=== PATIENT | female | born 1950 | race American Indian/Alaskan Native ===

== ENCOUNTER 2018-06-24 09:55 | Inpatient (IN) | payer MEDICARE ==
[2018-06-24] MEDS ORDERED: ANCEF/STERILE WATER 2 GM/20 ML 2 GM/20 ML SYRINGE IV NR (11:00)
[2018-06-24 11:17] LABS: Basophils # (Auto) 0.1 K/mm3 (0.0-0.1); Eosinophils # (Auto) 0.1 K/mm3 (0.0-0.4); Eosinophils % (Auto) 1.1 % (0.0-4.3); Hematocrit 31.5 % (30.3-42.9); Hemoglobin 10.4 gm/dl (10.1-14.3); Lymphocytes # (Auto) 1.7 K/mm3 (1.2-5.4); Lymphocytes % (Auto) 19.2 % (13.4-35.0); Mean Corpuscular HGB Conc 33 % (30-34); Mean Corpuscular Volume 94 fl (79-97); Monocytes # (Auto) 0.8 K/mm3 (0.0-0.8); Monocytes % (Auto) 8.7 % (0.0-7.3); Platelet Count 176 K/mm3 (140-440); Red Blood Count 3.34 M/mm3 (3.65-5.03); Red Cell Distribution Width 15.9 % (13.2-15.2)
[2018-06-24 11:23] LABS: INR 1.05 (0.87-1.13)
[2018-06-24 11:27] LABS: Calcium 8.2 mg/dL (8.4-10.2)
[2018-06-24] MEDS ORDERED: PERCOCET 5/325 PO PRN (12:35)
[2018-06-24] MEDS ORDERED: SODIUM CHLORIDE FLUSH SYRINGE 10 ML IV PRN (12:35)
[2018-06-24] MEDS ORDERED: ZOFRAN IV PRN (12:35)
[2018-06-24] MEDS ORDERED: TYLENOL PO PRN (12:35)
--- NOTE | 2018-06-24 12:41 | History and Physical Report ---
History of Present Illness Chief complaint: Needing dialysis History of present illness: 68 YO Female with ESRD on HD, DM, HTN, CVA presents to outpatient surgery for permacath placement. Pt found to have hyperkalemia and clotted AV fistula. 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 Pt denies fever chills, CP, Palpi tations, NVD, Trauma, syncope, falls, productive cough, or recent ill contacts. Pt admitted to medical floor. Nephrology consulted for dialysis. Vascular surgery consulted for clotted AV fistula repair. No reported nursing events Past History Past Medical History: diabetes, ESRD, hypertension, stroke Past Surgical History: Other (AV Fistula) Social history: . denies: smoking, alcohol abuse, prescription drug abuse Family history: hypertension Medications and Allergies Allergies Allergy/AdvReac Type Severity Reaction Status Date / Time strawberry Allergy Hives Unverified 06/24/18 09:56 Home Medications Medication Instructions Recorded Confirmed Last Taken Type Aspirin [Aspirin BABY CHEW TAB] 81 mg PO DAILY 10/27/13 06/24/18 06/23/18 History 81mg Gabapentin [Neurontin] 100 mg PO DAILY 10/27/13 06/24/18 06/23/18 History 100mg Calcium Acetate 667 mg PO TID 05/24/14 06/24/18 06/23/18 History 667mg Vit B Comp No.3/Folic/C/Biotin 1 each PO DAILY 05/24/14 06/24/18 06/23/18 History [Lucero-Omid Rx Tablet] Midodrine HCl 2.5 mg PO BID 06/24/18 06/24/18 06/23/18 History 2.5mg Active Meds: Active Medications Acetaminophen (Tylenol) 650 mg PO Q4H PRN PRN Reason: Pain MILD(1-3)/Fever >100.5/VILLATORO Aspirin (Baby Aspirin) 81 mg PO DAILY TJ Calcium Acetate (Phoslo) 667 mg PO TID TJ Gabapentin (Neurontin) 100 mg PO DAILY TJ Cefazolin Sodium (Ancef/Sterile Water 2 Gm/20 Ml) 2 gm in 20 mls @ 80 mls/hr IV PREOP NR; Protocol Stop: 06/24/18 23:59 Midodrine (Proamatine) 2.5 mg PO BID [facility] Miscellaneous Medication (Vit B Comp No.3/Folic/C/Biotin [Lucero-Omid Rx Tablet]) 1 each PO DAILY [facility] Ondansetron HCl (Zofran) 4 mg IV Q8H PRN PRN Reason: Nausea And Vomiting Oxycodone/Acetaminophen (Percocet 5/325) 1 tab PO Q6H PRN PRN Reason: Pain, Moderate (4-6) Sodium Chloride (Sodium Chloride Flush Syringe 10 Ml) 10 ml IV BID [facility] Sodium Chloride (Sodium Chloride Flush Syringe 10 Ml) 10 ml IV PRN PRN PRN Reason: LINE FLUSH Review of Systems Constitutional: no weight loss, no weight gain, no fever, no chills Ears, nose, mouth and throat: no ear pain, no ear discharge, no tinnitis Breasts: no change in shape, no swelling, no mass Cardiovascular: no chest pain, no orthopnea, no palpitations, no rapid/irregular heart beat, no edema, no syncope Respiratory: no cough, no cough with sputum, no excessive sputum, no hemoptysis, no shortness of breath Gastrointestinal: no nausea, no vomiting, no diarrhea, no constipation Genitourinary Female: no pelvic pain, no flank pain, no menorrhagia, no dysuria, no urinary frequency Rectal: no pain, no incontinence, no bleeding Musculoskeletal: no neck stiffness, no neck pain, no shooting arm pain, no arm numbness/tingling, no low back pain, no shooting leg pain Integumentary: no rash, no pruritis, no redness, no sores, no wounds, no jaundice Neurological: no head injury, no transient paralysis, no paralysis, no numbness, no tingling Psychiatric: no anxiety, no memory loss, no change in sleep habits, no insomnia, no hypersomnia, no change in appetite, no suicidal ideation Endocrine: no cold intolerance, no heat intolerance, no polyphagia, no excessive thirst, no polydipsia Hematologic/Lymphatic: no easy bruising, no easy bleeding, no lymphedema Allergic/Immunologic: no urticaria, no allergic rhinitis, no wheezing, no persistent infections, no anaphylaxis Exam - Constitutional Vitals: Temp Pulse Resp BP Pulse Ox 99.3 F 63 16 136/66 99 06/24/18 11:28 06/24/18 11:28 06/24/18 11:28 06/24/18 11:28 06/24/18 11:28 General appearance: Present: mild distress - EENT Eyes: Present: PERRL ENT: hearing intact, clear oral mucosa - Neck Neck: Present: supple, normal ROM - Respiratory Respiratory effort: normal Respiratory: bilateral: CTA - Cardiovascular Heart Sounds: Present: S1 & S2. Absent: rub, click - Extremities Extremities: pulses symmetrical, No edema Peripheral Pulses: within normal limits - Abdominal General gastrointestinal: Present: soft, non-tender, non-distended, normal bowel sounds Female genitourinary: Present: normal - Integumentary Integumentary: Present: clear, warm, dry - Musculoskeletal Musculoskeletal: gait normal, strength equal bilaterally - Psychiatric Psychiatric: appropriate mood/affect, intact judgment & insight - Neurologic Neurologic: CNII-XII intact, moves all extremities Results - Labs CBC & Chem 7: 06/24/18 19:47 06/24/18 19:47 Labs: Abnormal lab results 06/24/18 06/24/18 Range/Units 11:00 11:00 RBC 3.34 L (3.65-5.03) M/mm3 RDW 15.9 H (13.2-15.2) % [place] % (Auto) 8.7 H (0.0-7.3) % Potassium 6.1 H* (3.6-5.0) mmol/L Chloride 96.5 L (98-107) mmol/L Carbon Dioxide 21 L (22-30) mmol/L BUN 77 H (7-17) mg/dL Creatinine 13.1 H (0.7-1.2) mg/dL Calcium 8.2 L (8.4-10.2) mg/dL Assessment and Plan - Patient Problems (1) End-stage renal disease (ESRD) Status: Acute Plan to address problem: Nephrology consulted for urgent dialysis, monitor uop q shift, (2) Hyperkalemia Status: Acute Plan to address problem: Urgent dialysis, bmp, ekg. No EKG changes. (3) Acidosis Status: Acute Plan to address problem: Urgent dialysis, gentle IVF resuscitation therapy (4) AV fistula occlusion Status: Acute Qualifiers: Encounter type: initial encounter Qualified Code(s): T82.898A - Other specified complication of vascular prosthetic devices, implants and grafts, initial encounter Plan to address problem: Vascular surgery consulted, S/P Permacath placement. (5) DVT prophylaxis Status: Acute Plan to address problem: SCD to ble while in bed
[2018-06-24] MEDS ORDERED: HEPARIN/NS 5000 UNIT/500ML(CATH LAB) 1,000 ML IR ONE (12:42)
[2018-06-24] MEDS ORDERED: HEPARIN 10,000 UNITS/10 ML ONE (12:42)
[2018-06-24] MEDS ORDERED: XYLOCAINE 2% INFILTRATI ONE (12:42)
[2018-06-24] MEDS ORDERED: VERSED ONE (12:43)
[2018-06-24] MEDS ORDERED: SUBLIMAZE ONE (12:43)
[2018-06-24] MEDS ORDERED: NACL 0.9% 500 ML 500 ML ONE (12:53)
[2018-06-24] MEDS ORDERED: CALCIUM GLUCONATE 2,000 MG in NACL 0.9% 100 ML IV ONE (12:59)
[2018-06-24] MEDS ORDERED: KIONEX PO ONE (12:59)
[2018-06-24] MEDS ORDERED: ANCEF/STERILE WATER 2 GM/20 ML 2 GM/20 ML SYRINGE IV ONE (13:03)
--- NOTE | 2018-06-24 13:40 | Operative Report ---
Operative Report Operative Report: Operative note: Date: 06/22/2018 Preoperative diagnosis:. Left arm AV graft malfunction Postoperative diagnosis: Same. Operation: Fistulogram with balloon angioplasty of axillary vein Surgeon: Elisha Rhodes. Asst.: None Anesthesia: Local with sedation EBL: Minimal Findings: Severe stenosis of axillary vein Indications: 68-year-old female with prolonged bleeding and poor clearance during dialysis was discussed need for fistulogram. She was explained risks, benefits and alternatives of procedure and chose to proceed and signed informed consent. Operative details: Patient was brought to the [facility] and placed in supine position. Her left arm was prepped and draped in sterile fashion. Timeout was performed. AV graft was accessed in a retrograde fashion using standard micropuncture technique. Fistula was performed and showed tight stenosis at the axillary vein. It was upsized to 6 [place] sheath over a Suh wire. Using a vertebral catheter and wire was maneuvered through this much. Patient was given 2000 heparin. It balloon angioplasty using 8 x 40 [place] balloon was performed. There was significant improvement of the stenotic area. Graft started having palpable thrill. Exercise was closed using 4-0 Vicryl. Patient tolerated procedure well and was transferred to PACU in stable condition. Since her potassium was high she was admitted and scheduled to go for dialysis.
[2018-06-24] MEDS ORDERED: PHOSLO PO SCH (14:00)
[2018-06-24] MEDS ORDERED: NACL 0.9% 100 ML IV PRN ×4 (14:09→18:47)
[2018-06-24] MEDS ORDERED: HEPARIN IV ONE (14:19)
[2018-06-24 16:33] LABS: Albumin 3.7 g/dL (3.9-5); Calcium 7.9 mg/dL (8.4-10.2)
[2018-06-24 16:40] LABS: Hepatitis B Surface Antigen Non-Reactive (Negative); Hepatitis C Virus Antibody Non-Reactive (NonReactive)
--- NOTE | 2018-06-24 17:53 | Consultation ---
History of Present Illness - Reason for Consult Consult date: 06/24/18 end stage renal disease, hyperkalemia - History of Present Illness Patient is a 68yo with ESRD on HD MWF who presented to [facility] for outpatient management of malfunctioning AVG. Pre procedure labs obtained by vascular surgery notable for K 6.1. She has been admitted post procedure for management of hyperkalemia. Patient is seen s/p fistulogram w/ declot. Nephrology consultation requested for management of hyperkalemia in ESRD patient. Patient is seen in dialysis unit. She has no complaints today. Past History Past Medical History: ESRD, other (anemia secondary to ESRD, secondary hyperparathyroidism) Past Surgical History: Other (hx of partial colectomy with subsequent reanastamosis ) Social history: no significant social history, lives with family Family history: no significant family history Medications and Allergies Allergies Allergy/AdvReac Type Severity Reaction Status Date / Time strawberry Allergy Hives Unverified 06/24/18 09:56 Home Medications Medication Instructions Recorded Confirmed Last Taken Type Aspirin [Aspirin BABY CHEW TAB] 81 mg PO DAILY 10/27/13 06/24/18 06/23/18 History 81mg Gabapentin [Neurontin] 100 mg PO DAILY 10/27/13 06/24/18 06/23/18 History 100mg Calcium Acetate 667 mg PO TID 05/24/14 06/24/18 06/23/18 History 667mg Vit B Comp No.3/Folic/C/Biotin 1 each PO DAILY 05/24/14 06/24/18 06/23/18 History [Lucero-Omid Rx Tablet] Midodrine HCl 2.5 mg PO BID 06/24/18 06/24/18 06/23/18 History 2.5mg Active Meds: Active Medications Acetaminophen (Tylenol) 650 mg PO Q4H PRN PRN Reason: Pain MILD(1-3)/Fever >100.5/VILLATORO Aspirin (Baby Aspirin) 81 mg PO DAILY TJ Calcium Acetate (Phoslo) 667 mg PO TID TJ Gabapentin (Neurontin) 100 mg PO DAILY TJ Cefazolin Sodium (Ancef/Sterile Water 2 Gm/20 Ml) 2 gm in 20 mls @ 80 mls/hr IV PREOP NR; Protocol Stop: 06/24/18 23:59 Sodium Chloride (Nacl 0.9%) 100 mls @ 999 mls/hr IV NEDA PRN PRN Reason: Hypotension Midodrine (Proamatine) 2.5 mg PO BID TJ Multivit/Ca Carb/B Cmplx/FA/Prenat (Renal Caps) 1 cap PO QDAY TJ Ondansetron HCl (Zofran) 4 mg IV Q8H PRN PRN Reason: Nausea And Vomiting Oxycodone/Acetaminophen (Percocet 5/325) 1 tab PO Q6H PRN PRN Reason: Pain, Moderate (4-6) Sodium Chloride (Sodium Chloride Flush Syringe 10 Ml) 10 ml IV BID TJ Sodium Chloride (Sodium Chloride Flush Syringe 10 Ml) 10 ml IV PRN PRN PRN Reason: LINE FLUSH Review of Systems All systems: negative Exam - Vital Signs Vital signs: Vital Signs Temp Pulse Resp BP Pulse Ox 99.3 F 63 16 136/66 99 06/24/18 11:28 06/24/18 11:28 06/24/18 11:28 06/24/18 11:28 06/24/18 11:28 - General Appearance General appearance: well-developed, well-nourished EENT: ATNC Respiratory: Clear to Ascultation Heart: regular, S1S2 Gastrointestinal: Present: normal. Absent: tenderness, distended Integumentary: no rash, warm and dry Neurologic: no focal deficit, alert and oriented x3 Musculoskeletal: Present: other (no edema) Psychiatric: mood/affect appropriate, cooperative Results - Lab Results 06/24/18 11:00 06/24/18 15:20 Most recent lab results Calcium 7.9 mg/dL (8.4-10.2) L 06/24/18 15:20 Assessment and Plan Impression: * End stage renal disease * Hyperkalemia * Malfunctioning AVG s/p fistulogram w/ declot * Anemia secondary to ESRD * Secondary hyperparathyroidism Plan: * Hemodialysis today - of note, during treatment needle became dislodged but no significant blood loss * UF as tolerated * Repeat K following HD * Resume home medications * Renal diet * Binders with meals * Stable for d/c from a renal standpoint
[2018-06-24] MEDS ORDERED: HEPARIN 10,000 UNITS/10 ML IV PRN (18:42)
[2018-06-24] MEDS ORDERED: NACL 0.9 (PRIMING MACHINE ONLY DIALYSIS) MC ONE (19:18)
[2018-06-24 19:39] VITALS: BP 157/62
[2018-06-24 20:02] LABS: Basophils # (Auto) 0.1 K/mm3 (0.0-0.1); Basophils % (Auto) 1.2 % (0.0-1.8); Eosinophils # (Auto) 0.1 K/mm3 (0.0-0.4); Eosinophils % (Auto) 1.4 % (0.0-4.3); Hematocrit 34.8 % (30.3-42.9); Hemoglobin 11.5 gm/dl (10.1-14.3); Lymphocytes # (Auto) 2.7 K/mm3 (1.2-5.4); Lymphocytes % (Auto) 31.7 % (13.4-35.0); Mean Corpuscular HGB Conc 33 % (30-34); Mean Corpuscular Volume 95 fl (79-97); Monocytes # (Auto) 0.7 K/mm3 (0.0-0.8); Monocytes % (Auto) 7.9 % (0.0-7.3); Platelet Count 191 K/mm3 (140-440); Red Blood Count 3.67 M/mm3 (3.65-5.03)
[2018-06-24] MEDS ORDERED: PROAMATINE PO SCH (22:00)
[2018-06-24] MEDS ORDERED: SODIUM CHLORIDE FLUSH SYRINGE 10 ML IV SCH (22:00)
[2018-06-25] MEDS ORDERED: Renal Caps PO SCH (10:00)
[2018-06-25] MEDS ORDERED: BABY ASPIRIN PO SCH (10:00)
[2018-06-25] MEDS ORDERED: NEURONTIN PO SCH (10:00)
== END 2018-06-24 21:25 | disposition left against medical advice (07) | DRG 252 ==
LOC: CATHLABREC 09:55 → 2B-ACE 12:35
PROVIDERS: ADMIT Internal Medicine; ATTEND Internal Medicine
PROC: 05783ZZ Dilation of Left Axillary Vein, Percutaneous Approach (ICD-10-PCS; principal; 2018-06-24)
PROC: B51W1ZZ Fluoroscopy of Dialysis Shunt/Fistula using Low Osmolar Contrast (ICD-10-PCS; 2018-06-24)
PROC: 3E033GC Introduction of Other Therapeutic Substance into Peripheral Vein, Percutaneous Approach (ICD-10-PCS; 2018-06-24)
PROC: 5A1D70Z Performance of Urinary Filtration, Intermittent, Less than 6 Hours Per Day (ICD-10-PCS; 2018-06-24)
DX: T82.858A Stenosis of other vascular prosthetic devices, implants and grafts, initial encounter (principal); N18.6 End stage renal disease; E87.2 Acidosis; I12.0 Hypertensive chronic kidney disease with stage 5 chronic kidney disease or end stage renal disease; N25.81 Secondary hyperparathyroidism of renal origin; Y83.2 Surgical operation with anastomosis, bypass or graft as the cause of abnormal reaction of the patient, or of later complication, without mention of misadventure at the time of the procedure; D63.1 Anemia in chronic kidney disease; E11.22 Type 2 diabetes mellitus with diabetic chronic kidney disease; E87.5 Hyperkalemia; Y92.89 Other specified places as the place of occurrence of the external cause; Z86.73 Personal history of transient ischemic attack (TIA), and cerebral infarction without residual deficits; Z82.49 Family history of ischemic heart disease and other diseases of the circulatory system; Z79.82 Long term (current) use of aspirin; Z79.899 Other long term (current) drug therapy; Z90.49 Acquired absence of other specified parts of digestive tract
CPT/HCPCS: 36415; 36902; 76937; 80048; 80053; 80074; 84132; 85025; 85610; G0378; C1725; C1751; C1894; J0610; J0690; J1644; J2250; J3010; J7030; J7040; Q9967